=== PATIENT | male | born 1955 | race Caucasian/White ===

== ENCOUNTER 2021-09-02 08:34 | Emergency (ER) | payer OTHER ==
[~2021-09-02] VITALS: Ht 182.9 cm; Wt 90.7 kg
--- NOTE | 2021-09-02 09:09 | NUR ---
Dr Anthony at the bedside for MSE.
[2021-09-02 09:55] LABS: HEMATOCRIT 39.7 % (36.7-47.1); MEAN CORPUSCULAR HEMOGLOBIN 32.4 uug (23.8-33.4); MEAN CORPUSCULAR VOLUME 95.2 fL (73.0-96.2); PLATELET COUNT (AUTO) 270 K/uL (152-348)
[2021-09-02 10:01] LABS: CREATININE 1.1 mg/dL (0.6-1.3); POTASSIUM 3.8 mmol/L (3.5-5.1)
[2021-09-02 10:03] LABS: *BILIRUBIN,URIN NEGATIVE (NEGATIVE); *CLARITY,URINE CLEAR (CLEAR); *COLOR,URINE YELLOW (YELLOW); *KETONES,URINE TRACE (NEGATIVE); *UROBILINOGEN,URINE 0.2 E.U./dl (NORMAL); LEUKOCYTE ESTERASE ,URINE NEGATIVE (NEGATIVE); NITRITE, URINE NEGATIVE (NEGATIVE); PH,URINE 5.5 (5.0-8.0); UGLUCOSE NEGATIVE (NEGATIVE)
[2021-09-02 10:04] LABS: *BLOOD, URINE TRACE (NEGATIVE)
[2021-09-02 10:13] LABS: BILIRUBIN,DIRECT 0.1 mg/dL (0.0-0.2); BILIRUBIN,TOTAL 0.4 mg/dL (0.2-1.0); TOTAL PROTEIN, SERUM 7.6 g/dL (6.4-8.2)
[2021-09-02] MEDS ORDERED: LEVO750T46 PO (10:29)
[2021-09-02] MEDS ORDERED: BENZ-13 PO (10:29)
[2021-09-02] MEDS ORDERED: CEFTRIAXONE 1 G VIAL IM ONE (10:30)
[2021-09-02] MEDS ORDERED: levoFLOXacin 750 MG TABLET PO ONE (10:30)
[2021-09-02] MEDS ORDERED: LIDOCAINE HCL 1% 20 ML VIAL ONE (10:50)
[2021-09-02] MEDS ORDERED: CEFTRIAXONE 1 G VIAL ONE (10:50)
[2021-09-02] MEDS ORDERED: levoFLOXacin 750 MG TABLET ONE (10:50)
[2021-09-02 11:01] VITALS: BP 114/60
[2021-09-02 13:11] LABS: BACTERIA,URINE FEW /HPF (NONE SEEN); RBC,URINE 0-3 /HPF (0-3); SQUAMOUS EPITHELIAL CELL,UR FEW /HPF (NONE SEEN); URINE AMORPHOUS URATE MANY /HPF; WBC,URINE 0-3 /HPF (0-3)
== END 2021-09-02 11:02 | disposition home or self-care (01) ==
LOC: ER 08:37
DX: J18.9 Pneumonia, unspecified organism (principal); Z20.822 Contact with and (suspected) exposure to COVID-19; Z87.891 Personal history of nicotine dependence; Z85.72 Personal history of non-Hodgkin lymphomas
CPT/HCPCS: 36415; 71045; 80048; 80076; 81001; 83605; 83880; 84484; 85025; 85730; 87040 ×2; 87086; 87400; 87426; 96372; 99284; J0696; J3490; 70030-TC; A4663

== ENCOUNTER 2024-10-15 09:15 | Emergency (ER) | payer MEDICARE, BC ==
[~2024-10-15] VITALS: Ht 182.9 cm; Wt 90.7 kg
[~2024-10-15 09:15] MED LIST: BENZ-13 PO; LEVO750T46 PO
[2024-10-15 10:24] VITALS: BP 136/80; TEMP 97.8; O2SAT 97
== END 2024-10-15 10:25 | disposition home or self-care (01) ==
LOC: ER 09:15
DX: M20.011 Mallet finger of right finger(s) (principal); M79.644 Pain in right finger(s); F17.200 Nicotine dependence, unspecified, uncomplicated
CPT/HCPCS: 73140; A4606; A4663